=== PATIENT | female | born 1960 | race Two or more races ===

== ENCOUNTER → 2019-09-23 | Outpatient (REF) | payer BC | LOC: M SFHCLERA 17:52 | PROVIDERS: ATTEND Nurse Practitioner Family | DX: J02.9 Acute pharyngitis, unspecified (principal) ==

== ENCOUNTER → 2019-10-21 | Outpatient (REF) | payer BC | LOC: M SFHCPLAZ 11:56 | PROVIDERS: ATTEND Physician Assistant Medical | DX: E04.1 Nontoxic single thyroid nodule (principal); Z12.11 Encounter for screening for malignant neoplasm of colon; Z13.220 Encounter for screening for lipoid disorders ==

== ENCOUNTER → 2019-10-21 | Outpatient (CLI) | payer BC ==
[2019-10-21 13:47] LABS: BASO % 0.9 % (0.0-1.0); EOS # 0.1 10^3/uL (0.0-0.5); EOS % 1.1 % (0.0-3.0); HEMATOCRIT 40.4 % (36.0-47.0); HEMOGLOBIN 13.7 g/dl (12.0-15.5); LYMPH # 1.8 10^3/uL (1.5-5.0); LYMPH % 41.3 % (24.0-44.0); MEAN CORPUSCULAR HEMOGLOBIN 30.9 pg (27.0-33.0); MEAN CORPUSCULAR HGB CONC 33.9 g/dl (32.0-36.5); MONO # 0.3 10^3/uL (0.0-0.8); MONO % 6.1 % (0.0-5.0); NEUTROPHILS # 2.2 10^3/uL (1.5-8.5); NEUTROPHILS % 50.4 % (36.0-66.0); PLATELET COUNT, AUTOMATED 238 10^3/uL (150-450); RED BLOOD COUNT 4.44 10^6/uL (4.00-5.40); WHITE BLOOD COUNT 4.4 10^3/uL (4.0-10.0)
[2019-10-21 14:26] LABS: BLOOD UREA NITROGEN 12 MG/DL (7-18); CREATININE FOR GFR 0.59 MG/DL (0.55-1.30); GLUCOSE, FASTING 85 MG/DL (70-100)
[2019-10-21 14:27] LABS: ALT/SGPT 26 U/L (12-78); BILIRUBIN,TOTAL 0.6 MG/DL (0.2-1.0); CALCIUM LEVEL 9.2 MG/DL (8.8-10.2); CARBON DIOXIDE LEVEL 33 MEQ/L (21-32); CHLORIDE LEVEL 107 MEQ/L (98-107); CHOLESTEROL LEVEL 281 MG/DL (<200); FREE T4 1.22 NG/DL (0.76-1.46); GLOMERULAR FILTRATION RATE > 60.0 (>45); HDL CHOLESTEROL 50 MG/DL (>40); LDL CHOLESTEROL 190 MG/DL (<100); NON-HDL-C 231 MG/DL; POTASSIUM SERUM 3.9 MEQ/L (3.5-5.1); SODIUM LEVEL 142 MEQ/L (136-145); TOTAL PROTEIN 7.5 GM/DL (6.4-8.2); TRIGLYCERIDES LEVEL 205 MG/DL (<150)
[2019-10-22 11:33] LABS: THYROID PEROXIDASE ANTIBODY > 1300.0 U/ML (<60.0)
== END ==
LOC: M PLALAB 12:02
PROVIDERS: ATTEND Physician Assistant Medical
DX: Z13.220 Encounter for screening for lipoid disorders (principal); Z12.11 Encounter for screening for malignant neoplasm of colon; E04.1 Nontoxic single thyroid nodule

== ENCOUNTER → 2019-10-27 | Outpatient (CLI) | payer BC ==
--- NOTE | 2019-10-27 17:19 | REP ---
Clinical: Thyroid nodules. Palpable mass. Technique: Real time garner scale and color evaluation using linear high frequency transducer. Findings: The thyroid gland is relatively normal in size, contour and general parenchymal echotexture. Innumerable scattered small nonspecific hypoechoic nodules are noted bilaterally. Isthmus measures 2.6 mm in width. The right thyroid lobe measures 4.1 x 1.9 x 1.3 cm and the largest hypoechoic nodules measure 6 x 2 x 4 mm in the upper pole, 4 x 2 x 3 mm in the mid pole, and 8 x 4 x 6 mm in the lower pole. The left thyroid lobe measures 4.0 x 1.8 x 1.4 cm and the largest hypoechoic nodules measuring 6 x 3 x 7 mm towards the midline mid pole, and 8 x 2 x 6 mm in the mid pole. The patient's palpable mass corresponds to a complex cystic appearing collection measuring approximately 1.8 x 2.5 x 2.8 cm at the midline below the level of thyroid gland. Impression: 1. Nonspecific bilateral thyroid nodules. 2. Palpable mass corresponds to complex cystic lesion midline below the thyroid gland possible congenital thyroglossal duct cyst versus thymic cyst and other possibilities. Consider contrast enhanced CT of the neck for further investigation. Electronically Signed by Blue Crow MD 10/27/2019 05:10 P
== END ==
LOC: M RAD 15:51
PROVIDERS: ATTEND Physician Assistant Medical
DX: E04.1 Nontoxic single thyroid nodule (principal)

== ENCOUNTER → 2019-11-10 | Outpatient (CLI) | payer BC ==
[~2019-11-10] MED LIST: ISOVUE-370 76% 100ML VIAL (Q9967) As Ordered ONE
--- NOTE | 2019-11-11 07:31 | REPVR ---
PROCEDURE INFORMATION: Exam: CT Neck With Contrast Exam date and time: 11/10/2019 3:46 PM Age: 59 years old Clinical indication: Mass, lump, or swelling in neck; Additional info: Mass in neck TECHNIQUE: Imaging protocol: Computed tomography images of the neck with intravenous contrast. Radiation optimization: All CT scans at this facility use at least one of these dose optimization techniques: automated exposure control; mA and/or kV adjustment per patient size (includes targeted exams where dose is matched to clinical indication); or iterative reconstruction. Contrast material: ISOVUE 370; Contrast volume: 75 ml; Contrast route: IV; COMPARISON: Thyroid, ST head+neck US 10/27/2019 4:00 PM FINDINGS: Sinuses: There is mild mucoperiosteal thickening in the left maxillary sinus, consistent with mild chronic sinusitis. The visualized paranasal sinuses are otherwise clear. No fluid levels. Nasopharynx: The nasopharynx appears unremarkable. Oropharynx: The oropharynx appears unremarkable. There is no enlargement of the tonsils. Hypopharynx: The hypopharynx appears unremarkable. Larynx: The larynx and epiglottis appear unremarkable. Retropharyngeal space: The retropharyngeal tissues appear unremarkable. Submandibular/Parotid glands: The submandibular glands and the parotid glands are unremarkable and symmetric bilaterally. Thyroid: There is mild heterogeneity of the thyroid gland, corresponding with the multiple small nodules better visualized on the prior ultrasound. Lymph nodes: No lymphadenopathy is seen. Trachea: The trachea is normal. Lungs: There is nonspecific, subtle patchy ground-glass opacity in the visualized lungs. Vasculature: The visualized vasculature appears unremarkable. Mastoid air cells: The mastoid air cells are clear. Bones/joints: No suspicious osseous lesions. No acute fractures or dislocations. Soft tissues: There is a small cystic lesion in the midline anteriorly immediately behind the hyoid bone, extending inferiorly and to the left of midline into the left strap muscles to the level of the thyroid cartilage. There is no appreciable enhancement and the wall appears thin, correlating with the simple cystic appearance on the ultrasound. There are no associated soft tissue inflammatory changes. IMPRESSION: Midline to left paramidline simple cystic structure from the level of the hyoid to the thyroid cartilage anteriorly, corresponding with the cystic lesion identified on ultrasound, most consistent with a thyroglossal duct cyst or less likely, a small lymphocele. COMMENTS: Consistent with the [employer]'s Incidental Findings Committee white paper (J Am Ugo Radiol 2015): In patients aged 35 years and older with an incidental thyroid nodule equal to or greater than 1.[address], MRI or extrathyroidal US, further evaluation with dedicated thyroid US is recommended for patients with normal life expectancy and without comorbidities. For smaller nodules without suspicious features, no further evaluation or follow up is recommended. Electronically signed by: Iva Durant On 11/11/2019 07:31:24 AM
== END ==
LOC: M RAD 15:30
PROVIDERS: ATTEND Physician Assistant Medical
DX: E04.2 Nontoxic multinodular goiter (principal)
CPT/HCPCS: 70491; Q9967

== ENCOUNTER → 2020-03-17 | Outpatient (REF) | payer BC ==
[2020-03-17 12:41] LABS: ALBUMIN 3.9 GM/DL (3.2-5.2); ALT/SGPT 42 U/L (12-78); BILIRUBIN,TOTAL 0.9 MG/DL (0.2-1.0); BLOOD UREA NITROGEN 11 MG/DL (7-18); CALCIUM LEVEL 8.8 MG/DL (8.8-10.2); CARBON DIOXIDE LEVEL 30 MEQ/L (21-32); CHLORIDE LEVEL 109 MEQ/L (98-107); CHOLESTEROL LEVEL 163 MG/DL (<200); CHOLESTEROL RISK RATIO 3.196 (<5); CPK CREATINE PHOSPHOKINASE 155 U/L (26-192); GLOMERULAR FILTRATION RATE > 60.0 (>45); GLUCOSE, FASTING 90 MG/DL (70-100); HDL CHOLESTEROL 51 MG/DL (>40); LDL CHOLESTEROL 81 MG/DL (<100); NON-HDL-C 112 MG/DL; POTASSIUM SERUM 4.2 MEQ/L (3.5-5.1); SODIUM LEVEL 141 MEQ/L (136-145); TOTAL PROTEIN 7.3 GM/DL (6.4-8.2); TRIGLYCERIDES LEVEL 157 MG/DL (<150)
== END ==
LOC: M PLALAB 10:14
PROVIDERS: ATTEND Physician Assistant Medical
DX: E78.2 Mixed hyperlipidemia (principal)

== ENCOUNTER → 2020-08-25 | Outpatient (REF) | payer BC ==
[2020-08-25 10:37] LABS: BASO % 0.5 % (0.0-1.0); EOS % 1.1 % (0.0-3.0); HEMOGLOBIN 13.4 g/dl (12.0-15.5); LYMPH # 1.6 10^3/uL (1.5-5.0); LYMPH % 43.4 % (24.0-44.0); MEAN CORPUSCULAR HGB CONC 32.7 g/dl (32.0-36.5); MEAN CORPUSCULAR VOLUME 91.7 fl (80.0-96.0); MONO # 0.2 10^3/uL (0.0-0.8); MONO % 6.3 % (0.0-5.0); NEUTROPHILS # 1.8 10^3/uL (1.5-8.5); NEUTROPHILS % 48.4 % (36.0-66.0); PLATELET COUNT, AUTOMATED 232 10^3/uL (150-450); RED BLOOD COUNT 4.47 10^6/uL (4.00-5.40); WHITE BLOOD COUNT 3.7 10^3/uL (4.0-10.0)
[2020-08-25 11:13] LABS: ALBUMIN 3.9 GM/DL (3.2-5.2); ALT/SGPT 31 U/L (12-78); BILIRUBIN,TOTAL 0.9 MG/DL (0.2-1.0); BLOOD UREA NITROGEN 10 MG/DL (7-18); CALCIUM LEVEL 8.9 MG/DL (8.8-10.2); CARBON DIOXIDE LEVEL 30 MEQ/L (21-32); CHLORIDE LEVEL 109 MEQ/L (98-107); CHOLESTEROL LEVEL 173 MG/DL (<200); CPK CREATINE PHOSPHOKINASE 119 U/L (26-192); CREATININE FOR GFR 0.63 MG/DL (0.55-1.30); FREE T4 1.06 NG/DL (0.76-1.46); GLOMERULAR FILTRATION RATE > 60.0 (>45); GLUCOSE, FASTING 90 MG/DL (70-100); HDL CHOLESTEROL 50 MG/DL (>40); LDL CHOLESTEROL 71 MG/DL (<100); NON-HDL-C 123 MG/DL; POTASSIUM SERUM 4.3 MEQ/L (3.5-5.1); SODIUM LEVEL 142 MEQ/L (136-145); TOTAL PROTEIN 7.2 GM/DL (6.4-8.2); TRIGLYCERIDES LEVEL 258 MG/DL (<150)
== END ==
LOC: M SFHCPLAZ 08:58
PROVIDERS: ATTEND Physician Assistant Medical
DX: E04.1 Nontoxic single thyroid nodule (principal); E78.00 Pure hypercholesterolemia, unspecified; K21.9 Gastro-esophageal reflux disease without esophagitis

== ENCOUNTER → 2020-11-19 | Outpatient (REF) | payer BC ==
[2020-11-19 11:37] LABS: BASO % 0.6 % (0.0-1.0); EOS % 1.1 % (0.0-3.0); HEMATOCRIT 41.2 % (36.0-47.0); HEMOGLOBIN 13.8 g/dl (12.0-15.5); LYMPH # 1.4 10^3/uL (1.5-5.0); MEAN CORPUSCULAR HEMOGLOBIN 30.5 pg (27.0-33.0); MEAN CORPUSCULAR HGB CONC 33.5 g/dl (32.0-36.5); MEAN CORPUSCULAR VOLUME 90.9 fl (80.0-96.0); MONO # 0.3 10^3/uL (0.0-0.8); MONO % 7.8 % (2.0-8.0); NEUTROPHILS # 1.8 10^3/uL (1.5-8.5); NEUTROPHILS % 51.2 % (36.0-66.0); PLATELET COUNT, AUTOMATED 231 10^3/uL (150-450); RED BLOOD COUNT 4.53 10^6/uL (4.00-5.40); WHITE BLOOD COUNT 3.6 10^3/uL (4.0-10.0)
[2020-11-19 12:17] LABS: ALT/SGPT 37 U/L (12-78); BILIRUBIN,TOTAL 0.8 MG/DL (0.2-1.0); BLOOD UREA NITROGEN 11 MG/DL (7-18); CALCIUM LEVEL 8.9 MG/DL (8.8-10.2); CARBON DIOXIDE LEVEL 30 MEQ/L (21-32); CHLORIDE LEVEL 108 MEQ/L (98-107); CHOLESTEROL LEVEL 180 MG/DL (<200); GLOMERULAR FILTRATION RATE > 60.0 (>45); GLUCOSE, FASTING 93 MG/DL (70-100); HDL CHOLESTEROL 48 MG/DL (>40); LDL CHOLESTEROL 96 MG/DL (<100); NON-HDL-C 132 MG/DL; POTASSIUM SERUM 4.3 MEQ/L (3.5-5.1); SODIUM LEVEL 143 MEQ/L (136-145); TOTAL PROTEIN 7.3 GM/DL (6.4-8.2); TRIGLYCERIDES LEVEL 182 MG/DL (<150)
== END ==
LOC: M SFHCPLAZ 08:12
PROVIDERS: ATTEND Physician Assistant Medical
DX: D72.819 Decreased white blood cell count, unspecified (principal); E78.2 Mixed hyperlipidemia

== ENCOUNTER → 2020-11-30 | Outpatient (CLI) | payer BC ==
--- NOTE | 2020-11-30 14:25 | REPMRS ---
Patient History The patient states she has not had a clinical breast exam in over a year. No known family history of cancer. No Hormone Replacement Therapy Digital Woman Screen Mammo: November 30, 2020 - Exam #: [id number] Bilateral CC and MLO view(s) were taken. Technologist: Krys Albert, Technologist No prior studies available for comparison. FINDINGS: There are scattered fibroglandular densities. The Volpara volumetric breast density category is: B. There is no evidence of dominant mass, architectural distortion, or grouped microcalcification typical of malignancy. 3-D tomosynthesis shows no additional findings. Assessment: BI-RADS/ACR category 1 mammogram. Negative Mammogram. Recommendation Routine screening mammogram of both breasts in 1 year (for women over age 40). This patient's [facility] Lifetime Breast Cancer RIsk is estimated at 5.5 %. This mammogram was interpreted with the aid of an FDA-approved computer-aided dectection system. Electronically Signed By: Chris Denny MD 11/30/20 [id number]
== END ==
LOC: M WHC 13:13
PROVIDERS: ATTEND Physician Assistant Medical
DX: Z12.39 Encounter for other screening for malignant neoplasm of breast (principal)